=== PATIENT | female | born 1975 | race Caucasian/White ===

== ENCOUNTER 2019-12-14 00:41 | Inpatient (IN) | payer OTHER ==
[~2019-12-14] VITALS: Ht 149.9 cm; Wt 36.3 kg
[2019-12-14 00:52] VITALS: BP 128/91
[2019-12-14 01:32] LABS: HEMATOCRIT 43.1 % (37.0-47.0); HEMOGLOBIN 14.4 gm/dL (12.0-15.0); MCHC 33.5 g/dL (28.0-37.0); MCV 86.6 fL (80.0-100.0); RBC 4.97 mil/uL (4.20-5.00); RDW 11.9 % (10.5-14.5); WBC 13.7 thou/uL (4.0-11.0)
[2019-12-14 01:46] LABS: CREATININE 1.3 mg/dL (0.6-1.0)
[2019-12-14 01:54] LABS: POTASSIUM 2.6 mmol/L (3.5-5.1)
[2019-12-14 01:55] LABS: CALCIUM 12.9 mg/dL (8.5-10.1)
[2019-12-14 02:44] LABS: PHOSPHORUS 2.8 mg/dL (2.6-4.7)
[2019-12-14 03:56] LABS: URINE BILIRUBIN NEGATIVE (Negative); URINE BLOOD 3+ (Negative); URINE CLARITY SL CLOUDY; URINE COLOR YELLOW; URINE GLUCOSE-RANDOM* NEGATIVE (Negative); URINE KETONES NEGATIVE (Negative); URINE NITRITE-REFLEX NEGATIVE (Negative); URINE PROTEIN (DIPSTICK) NEGATIVE (Negative); URINE UROBILINOGEN 0.2 E.U./dl (0.2-1.0)
[2019-12-14 03:57] LABS: URINE LEUKOCYTES-REFLEX 2+ (Negative)
[2019-12-14 04:12] LABS: CASTS None Seen /LPF (None Seen); CRYSTALS None Seen /LPF (None Seen); MUCUS 4-6 Moderate strn/LPF (None Seen); SQUAMOUS >10 Many /LPF (0-3); URINE RBC 3-10 Few /HPF (0-2); URINE WBC-REFLEX 6-15 Few /HPF (0-5)
--- NOTE | 2019-12-14 07:47 | EKG ---
[facility] [place] [address] ELECTROCARDIOGRAM REPORT Name: ILAN SOUSA Room #: 170-12 ADM IN M.R.#: [id number] Admission: 12/14/19 Attend Phys: Toño Olmstead MD Discharge: Date of : 77 Report #: [id number] THIS REPORT FOR: cc: [facility] - Clinic physician unknown [facility] - Clinic physician unknown Sid Shields MD LOCATED WITHIN [facility] ~ THIS REPORT FOR: //name// [facility] ED Test Date: 2019-12-14 Test Time: 02:51:35 Pat Name: ILAN SOUSA Department: Room: 170 Gender: F 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
[2019-12-14 08:17] VITALS: BP 158/89
[2019-12-14 09:00] LABS: POTASSIUM 3.1 mmol/L (3.5-5.1)
[2019-12-14 09:01] LABS: CALCIUM 10.4 mg/dL (8.5-10.1)
[2019-12-14 10:32] LABS: CALCIUM 10.7 mg/dL (8.5-10.1); PHOSPHORUS 2.4 mg/dL (2.5-4.9)
[2019-12-14 16:43] VITALS: BP 158/89
[2019-12-14 17:17] VITALS: BP 131/78
[2019-12-14 17:30] VITALS: BP 126/71
[2019-12-14 20:15] VITALS: BP 1238/70
--- NOTE | 2019-12-15 03:17 | NUR ---
PATIENT AOX4 CONFUSED AND FORGETFUL AT TIMES. PATIENT DENIED NAUSEA/VOMIT. PATIENT AMBULATES TO THE BATHROOM WITH STEADY GAITS. PATIENT NEEDS STAND BY ASSISTANCE WITH ADL, BED MOBILITY, TRANSFER AND TOILETING. PATIENT IN BED ASLEEP AT THIS TIME BREATHING REGULAR AND UNLABOURED.
[2019-12-15 05:20] LABS: ALBUMIN 4.5 g/dL (3.4-5.0); CALCIUM 10.8 mg/dL (8.5-10.1); PHOSPHORUS 1.8 mg/dL (2.5-4.9)
[2019-12-15 05:38] LABS: POTASSIUM 4.2 mmol/L (3.5-5.1)
[2019-12-15 07:55] VITALS: BP 135/79
[2019-12-15 10:55] LABS: HEMATOCRIT 35.7 % (37.0-47.0); HEMOGLOBIN 11.7 gm/dL (12.0-15.0); MCH 29.3 pg (26.0-34.0); MCHC 32.9 g/dL (28.0-37.0); MCV 89.2 fL (80.0-100.0); RDW 12.2 % (10.5-14.5)
--- NOTE | 2019-12-15 11:53 | NUR ---
Met with patient who resides at home with spouse and adult son who is 19. Patient admits with colitis. She has hx of bipolar, lupus she is on disability. She has pcp and psychiatrist out of [place]. She has health insurance and reports she has prescription benefit. 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 She plans home once stable. Anticipate no dc needs.
[2019-12-15 14:04] VITALS: BP 162/106
[2019-12-15] MEDS ORDERED: LITHIUM CARBON300 MG PO (14:26)
[2019-12-15] MEDS ORDERED: ALPRAZOLAM 0.50.5 M1 PO (14:27)
[2019-12-15] MEDS ORDERED: GABAPENTIN800 M1 PO (14:30)
[2019-12-15] MEDS ORDERED: PLAQUENIL200 MG PO (14:34)
[2019-12-15] MEDS ORDERED: NORCO 5-325 TA1 EAC2 PO (14:34)
[2019-12-15] MEDS ORDERED: AMBIEN 5 MG TABL5 M1 PO (14:36)
[2019-12-15] MEDS ORDERED: FLEXERIL PO (14:36)
[2019-12-15 17:38] VITALS: BP 135/92
[2019-12-15 19:43] VITALS: BP 141/91
[2019-12-15 19:54] LABS: URINE BILIRUBIN NEGATIVE (Negative); URINE BLOOD NEGATIVE (Negative); URINE CLARITY CLEAR; URINE COLOR YELLOW; URINE GLUCOSE-RANDOM* NEGATIVE (Negative); URINE KETONES NEGATIVE (Negative); URINE LEUKOCYTES-REFLEX NEGATIVE (Negative); URINE NITRITE-REFLEX NEGATIVE (Negative); URINE PROTEIN (DIPSTICK) NEGATIVE (Negative); URINE UROBILINOGEN 0.2 E.U./dl (0.2-1.0)
[2019-12-15 20:03] LABS: CALCIUM-RND URINE 7.9 mg/dl; URINE CREATININE-RANDOM* 23.6 mg/dL
--- NOTE | 2019-12-15 20:36 | NUR ---
PT CONFUSED, VSS, NO PAIN. PATIENT HAVING HALLUCINATIONS. PATIENT ABLE TO ANSWER QUESTIONS EXCEPT CONFUSION ON TIME. UA COLLECTED. AT BEDSIDE. NO SIGNS OF DISTRESS. DOCTOR AWARE OF ALTERED MENTAL STATUS. WILL CONTINUE TO MONITOR.
--- NOTE | 2019-12-16 03:25 | NUR ---
PATIENT AOX1 CONFUSED AND FORGETFUL. PATIENT SEEING UNSEEN OTHERS POSSIBLE HALLUCINATING. PATIENT TELLS THIS NURSE SHE IS SEEING LIGHT ON THE FLOOR. PATIENT SEEM TO BE RESPONDING TO INTERNAL STIMULI. CALLED FLOW TRADER NEW ORDER OF HALDOL 2.5 MG X 1 DOSE. PATIENT INCONTIENT THIS SHIFT PERICARE AND BARRIWER CREAM APPLIED NEEDED. PATIENT IS NOT ABLE TO FOLLOW DIRECTION AT TIMES. PATIENT USES A BED SIDE COMMODE. PATIENT IN BED ASLEEP AT THIS TIME BREATHING REGULAR AND UNLABOURED.
[2019-12-16 05:47] LABS: ABSOLUTE NEUTROPHILS 8.2 thou/uL (1.4-8.2); BASOPHILS 0.5 % (0.0-2.0); EOSINOPHILS 0.7 % (0.0-3.0); HEMATOCRIT 31.7 % (37.0-47.0); HEMOGLOBIN 10.7 gm/dL (12.0-15.0); LYMPHOCYTES 18.4 % (24.0-44.0); MCH 29.7 pg (26.0-34.0); MCHC 33.9 g/dL (28.0-37.0); MCV 87.6 fL (80.0-100.0); MONOCYTES 8.3 % (1.0-8.0); POLYS 72.1 % (36.0-66.0); RBC 3.62 mil/uL (4.20-5.00); RDW 12.1 % (10.5-14.5); WBC 11.4 thou/uL (4.0-11.0)
[2019-12-16 05:49] LABS: PLATELET COUNT 419 thou/uL (150-400)
[2019-12-16 06:06] LABS: ALBUMIN 3.9 g/dL (3.4-5.0); CALCIUM 9.8 mg/dL (8.5-10.1); CREATININE 0.7 mg/dL (0.6-1.0); MAGNESIUM 1.7 mg/dL (1.8-2.4); PHOSPHORUS 2.7 mg/dL (2.5-4.9); TOTAL BILIRUBIN 0.4 mg/dL (0.2-1.0); TOTAL PROTEIN 6.6 g/dL (6.4-8.2)
[2019-12-16 07:30] VITALS: BP 140/83
[2019-12-16 14:43] VITALS: BP 130/81
--- NOTE | 2019-12-16 16:45 | NUR ---
Received awake on bed. Due medications given as prescribed, able to swallow meds w/o difficulty. On room air. Vital signs stable. On telemetry; no complains or signs of chest pain, crushing sensation and heaviness; running tachycardic at times. On renal diet- tolerating well; no nausea, no vomiting and no abdominal pain noted. Assisted in ADLs. With on and off incontinence- assited in using bedside commode. With NS at 150cc/hr, infusing well at R AC. Falls bundle in place, pt with several episodes of confusion and impulsiveness. Visited by today- update given. Pt having visual hallucinations- Dr Gama informed; she said she'll pt labs and considering neuro/psych consult on patient. Seen and examined by Dr Ledezma today- pt still refusing to have EGD and Colonoscopy. Pt seen and examined by Dr Rendon- ordered US, done at bedside; pt tolerated well; may d/c IVF as well. To continue monitoring patient.
[2019-12-16 20:12] VITALS: BP 125/78
[2019-12-17] VITALS (10 sets, daily range): BP systolic 125–150; BP diastolic 62–92
[2019-12-17 05:36] LABS: ABSOLUTE NEUTROPHILS 6.9 thou/uL (1.4-8.2); BASOPHILS 0.9 % (0.0-2.0); EOSINOPHILS 2.4 % (0.0-3.0); HEMATOCRIT 32.9 % (37.0-47.0); LYMPHOCYTES 21.2 % (24.0-44.0); MCH 29.5 pg (26.0-34.0); MCHC 33.5 g/dL (28.0-37.0); MCV 88.1 fL (80.0-100.0); MONOCYTES 8.3 % (1.0-8.0); PLATELET COUNT 448 thou/uL (150-400); POLYS 67.2 % (36.0-66.0); RBC 3.74 mil/uL (4.20-5.00); RDW 12.1 % (10.5-14.5); WBC 10.3 thou/uL (4.0-11.0)
[2019-12-17 06:04] LABS: ALBUMIN 3.8 g/dL (3.4-5.0); CREATININE 0.8 mg/dL (0.6-1.0); PHOSPHORUS 2.5 mg/dL (2.5-4.9); POTASSIUM 3.7 mmol/L (3.5-5.1)
[2019-12-17 06:25] LABS: ALBUMIN 3.9 g/dL (3.4-5.0); DIRECT BILIRUBIN < 0.1 mg/dL (<0.1-0.2); SGOT 13 U/L (15-37); SGPT 22 U/L (30-65); TOTAL BILIRUBIN 0.3 mg/dL (0.2-1.0); TOTAL PROTEIN 6.3 g/dL (6.4-8.2)
--- NOTE | 2019-12-17 07:44 | NUR ---
Assumed pt care at 1900. VSS.A/OX2-3 with confusion/hallucination noted through the night. Pt gets impulsive at times and doesn't call for help,fall precautions in place. CT of the head done at [facility];and negative. Pt has been continent of bladder at [facility],up with AX1 to BSC however pt doesn't verbalize need to void just gets up and appears lost when asked what she's trying to do but will pee when sat on the BSC. NSR on telemetry. Neuro assessment done Q4 as ordered w/o significant changes noted. Resting quietly at this time w/o distress noted,will continue to monitor pt.
--- NOTE | 2019-12-17 11:10 | NUR ---
Received awake on bed. Due medications given as prescribed, able to swallow meds w/o difficulty. On room air. Vital signs stable. On telemetry, no complains and signs of chest pain, crushing sensation and heaviness. On Renal diet- tolerating well; encouraged in eating and drinking; no nausea, no vomiting and no abdominal pain noted. With on and off incontinence- checked regularly and changed as needed. With SL at R AC- intact and flushing well. Pt still confused and having hallucinations- physician aware, psych consulted- a/w rounds. With at bedside-update given. To continue monitoring patient.
--- NOTE | 2019-12-18 03:15 | NUR ---
ASSUMED CARE OF PT AT 1900HRS. PT AOX1 AND COMPLETELY CONFUSED. FALL PRECAUTION IN PLACE. WORD SALAD. PT PULLED IV OUT THIS SHIFT. PT GETS UP AND VOIDS ON THE FLOOR. PT IS UNABLE TO FOLLOW DIRECTION MOST OF THE TIMES. PT DENIES PAIN, NAUSEA OR SOA. IS SR/ST ON TELE. PT DENIES PAIN, NAUSEA OR SOA. VSS AND NO S/S OF ACUTE DISTRESS. WILL CONTINUE TO MONITOR FOR CHANGES.
[2019-12-18 05:22] VITALS: BP 149/83
[2019-12-18 05:30] VITALS: BP 149/83
[2019-12-18 05:55] LABS: ALBUMIN 4.2 g/dL (3.4-5.0); CALCIUM 10.4 mg/dL (8.5-10.1); CREATININE 0.9 mg/dL (0.6-1.0); PHOSPHORUS 2.5 mg/dL (2.5-4.9); POTASSIUM 3.7 mmol/L (3.5-5.1)
[2019-12-18 09:00] VITALS: BP 133/78
[2019-12-18] MEDS ORDERED: PROTONIX 20 MG20 M1 PO (10:53)
[2019-12-18] MEDS ORDERED: CEFDINIR300 MG PO (10:53)
--- NOTE | 2019-12-18 13:59 | NUR ---
Received awake on bed. Due medications given as prescribed, able to swallow meds w/o difficulty. On room air. Vital signs stable. On telemetry; no complain of chest pain, crushing sensation and heaviness. On renal diet- with poor appetite; assisted in eating and drinking; no nausea, no vomiting and no abdominal pain. With SL at L upper arm- intact and flushing well; on IV antibiotics. With on and off incontinence- checked frequently. With at bedside- update given. Still a/w Dr Baker's rounds. Falls bundle in place, pt can be impulsive. Pt transferred to 461- near nurse's station for close monitoring. Pt seen and examined by Dr Olmstead this AM, update given, informed her that lupus meds not restarted- to review. Pt seen and examined by Dr Baker, a/w recommendations.
[2019-12-18 14:19] VITALS: BP 133/78
[2019-12-18 14:34] VITALS: BP 141/89
--- NOTE | 2019-12-18 15:11 | NUR ---
CARE TEAM INDICATED THAT PT IS MEDICALLY STABLE TO DISCHARGE HOME THIS DAY. PT AND PT'S SPOUSE ARE AWARE AND AGREEABLE WITH DC HOME TO SELF CARE THIS DAY. PT'S SPOUSE IS TO PROVIDE TRANSPORT HOME THIS DAY. NO OTHER CM INTERVENTION INDICATED. CASE CLOSED.
[2019-12-19 07:08] LABS: 25-HYDROXY TOTAL 55.7 ng/mL (30.0-100.0)
== END 2019-12-18 17:12 | disposition home or self-care (01) | DRG 391 ==
LOC: ER 00:41 → 4W 04:06 → EROBS 04:06 → 4W 17:34 → 4S 20:03 → 4W 20:06
PROVIDERS: Emergency Medicine; Internal Medicine; Internal Medicine Nephrology; Nurse Practitioner; ADMIT Hospitalist; ATTEND Hospitalist
DX: K52.9 Noninfective gastroenteritis and colitis, unspecified (principal); N17.0 Acute kidney failure with tubular necrosis; N39.0 Urinary tract infection, site not specified; Z68.1 Body mass index [BMI] 19.9 or less, adult; K92.0 Hematemesis; E83.52 Hypercalcemia; E87.6 Hypokalemia; F31.9 Bipolar disorder, unspecified; F12.90 Cannabis use, unspecified, uncomplicated; R63.4 Abnormal weight loss; E86.0 Dehydration; T43.595A Adverse effect of other antipsychotics and neuroleptics, initial encounter; M32.9 Systemic lupus erythematosus, unspecified; K25.9 Gastric ulcer, unspecified as acute or chronic, without hemorrhage or perforation; F29 Unspecified psychosis not due to a substance or known physiological condition; Z20.828 Contact with and (suspected) exposure to other viral communicable diseases; Y92.89 Other specified places as the place of occurrence of the external cause; Z88.5 Allergy status to narcotic agent
CPT/HCPCS: 10045